=== PATIENT | female | born 1945 | race Caucasian/White ===

== ENCOUNTER 2017-08-08 06:28 | Inpatient (IN) | payer MEDICARE, BC ==
[~2017-08-08] VITALS: Ht 162.6 cm; Wt 53.8 kg
[~2017-08-08 06:28] MED LIST: ACET-1600 PO; CHOL20002 PO; FEXO1TAB25 PO; LEVO88TA4 PO; MULT-516 PO
[2017-08-08] MEDS ORDERED: MIDAZOLAM 1 MG/ML, 2ML ONE (06:53)
[2017-08-08] MEDS ORDERED: FENTANYL PF 100 MCG/2ML ONE ×2 (06:53→10:05)
[2017-08-08] MEDS ORDERED: LACTATED RINGERS 1,000 ML IV SCH (07:09)
[2017-08-08 07:17] VITALS: BP 139/76
[2017-08-08] MEDS ORDERED: EPINEPHRINE 1 MG/ML, 1ML ONE (07:29)
[2017-08-08] MEDS ORDERED: TRANEXAMIC ACID 100 MG/ML, 10ML ONE (07:29)
[2017-08-08] MEDS ORDERED: ROPIvacaine/PF 0.2%, 20 ML ONE (07:29)
[2017-08-08] MEDS ORDERED: SODIUM CHLORIDE 0.9% 100 ML ONE (07:29)
[2017-08-08] MEDS ORDERED: KETOROLAC 60 MG/2 ML ONE (07:29)
[2017-08-08] MEDS ORDERED: ONDANSETRON ODT 8 MG PO ONE (07:30)
[2017-08-08] MEDS ORDERED: ACETAMINOPHEN 500 MG TABLET PO ONE (07:30)
[2017-08-08] MEDS ORDERED: OxyconTIN ER 10 MG TAB.ER PO ONE (07:30)
[2017-08-08] MEDS ORDERED: GABAPENTIN 300 MG CAPSULE PO ONE (07:30)
[2017-08-08] MEDS ORDERED: ROCURONIUM 10 MG/ML,10ML ONE (07:46)
[2017-08-08] MEDS ORDERED: SUCCINYLCHOLINE 20 MG/ML, 10ML ONE (07:46)
[2017-08-08] MEDS ORDERED: PROPOFOL 10 MG/ML, 20ML ONE (08:48)
[2017-08-08] MEDS ORDERED: LIDOCAINE 2%, 10ML ONE (08:48)
[2017-08-08] MEDS ORDERED: DEXAMETHASONE 4 MG/ML, 1ML ONE (08:48)
[2017-08-08] MEDS ORDERED: CEFAZOLIN 1,000 MG ONE (08:48)
[2017-08-08] MEDS ORDERED: MORPHINE SULFATE 4 MG/ML, 1ML ONE ×2 (08:56→10:14)
[2017-08-08] MEDS ORDERED: EPHEDRINE 50 MG/ML, 1ML IM PRN (09:00)
[2017-08-08] MEDS ORDERED: MIDAZOLAM 1 MG/ML, 2ML IV PRN (09:00)
[2017-08-08] MEDS ORDERED: PROMETHAZINE 25 MG/ML, 1ML IV PRN (09:00)
[2017-08-08] MEDS ORDERED: ONDANSETRON 0.8 MG/ML ORAL SOL PO PRN (09:00)
[2017-08-08] MEDS ORDERED: SCOPOLAMINE PATCH, 1.5MG PATCH.TD72 TD PRN (09:00)
[2017-08-08] MEDS ORDERED: ALBUTEROL/IPRATROPIUM 2.5MG/0.5MG, 3 ML NPPB PRN (09:00)
[2017-08-08] MEDS ORDERED: OXYcodone 5 MG/5 ML ORAL.SOL UDC PO PRN (09:00)
[2017-08-08] MEDS ORDERED: PROMETHAZINE 25 MG/ML, 1ML IM PRN ×2 (09:00→10:00)
[2017-08-08] MEDS ORDERED: MORPHINE SULFATE 4 MG/ML, 1ML IVPush PRN (09:00)
[2017-08-08] MEDS ORDERED: PROCHLORPERAZINE 5 MG/ML, 2ML IV PRN (09:00)
[2017-08-08] MEDS ORDERED: hydrALAzine 20 MG/ML, 1ML IV PRN (09:00)
[2017-08-08] MEDS ORDERED: LORazepam 2 MG/ML, 1ML IVPush PRN (09:00)
[2017-08-08] MEDS ORDERED: LABETALOL 5MG/ML, 20ML IV PRN (09:00)
[2017-08-08] MEDS ORDERED: DIPHENHYDRAMINE 50 MG/ML, 1ML IVPush PRN (09:00)
[2017-08-08] MEDS ORDERED: DIAZEPAM 5 MG/ML, 2ML IVPush PRN (09:00)
[2017-08-08] MEDS ORDERED: HYDROcodone/APAP 5/325 TABLET PO PRN (10:00)
[2017-08-08] MEDS ORDERED: ZOLPIDEM 5MG TABLET PO PRN (10:00)
[2017-08-08] MEDS ORDERED: ONDANSETRON 2MG/ML, 2ML IV PRN (10:00)
[2017-08-08] MEDS ORDERED: PROMETHAZINE 12.5 MG SUPP PR PRN (10:00)
[2017-08-08] MEDS ORDERED: DIAZEPAM 5 MG TABLET PO PRN (10:00)
[2017-08-08] MEDS ORDERED: SENNA/DOCUSATE TABLET PO PRN (10:00)
[2017-08-08] MEDS ORDERED: ACETAMINOPHEN 650 MG/20.3 ML UDC PO PRN (10:00)
[2017-08-08] MEDS ORDERED: ALUMINUM/MAG/SIMETHICONE 30 ML UDC PO PRN (10:00)
[2017-08-08] MEDS ORDERED: BISACODYL 10 MG SUPP PR PRN (10:00)
[2017-08-08] MEDS ORDERED: ONDANSETRON 4 MG TABLET PO PRN (10:00)
[2017-08-08] MEDS ORDERED: HYDROmorphone 1 MG/ML, 1ML IV PRN (10:00)
[2017-08-08] MEDS ORDERED: MAGNESIUM HYDROXIDE 8%, 30ML UDC PO PRN (10:00)
[2017-08-08] MEDS ORDERED: DIPHENHYDRAMINE 50 MG CAPSULE PO PRN (10:00)
[2017-08-08] MEDS: FENTANYL PF 100 MCG/2ML IV PRN ×2 (10:07→10:13)
[2017-08-08] MEDS ORDERED: TRANEXAMIC ACID 1,000 MG in SODIUM CHLORIDE 0.9% 100 ML IVPB ONE (10:15)
[2017-08-08 11:10] VITALS: BP 120/56
[2017-08-08] MEDS: HYDROcodone/APAP 5/325 TABLET PO SCH ×3 (11:56→20:00)
[2017-08-08] MEDS: TAMSULOSIN 0.4 MG CAP.ER.24H PO SCH (11:56)
[2017-08-08] MEDS: D5%-0.45% NACL 1,000 ML IV SCH ×2 (11:57→19:33)
[2017-08-08 13:30] VITALS: BP 100/58
[2017-08-08] MEDS ORDERED: ONDANSETRON ODT 4 MG ONE (15:59)
[2017-08-08] MEDS: CEFAZOLIN PMX 2GM/50ML 50 ML IVPB SCH (16:00)
[2017-08-08] MEDS: ASPIRIN 81 MG TABLET EC PO SCH (18:28)
[2017-08-08 19:01] VITALS: BP 105/56
[2017-08-08] MEDS: DOCUSATE 100 MG CAPSULE PO SCH (19:33)
[2017-08-09] MEDS: CEFAZOLIN PMX 2GM/50ML 50 ML IVPB SCH (00:08)
[2017-08-09 00:10] VITALS: BP 104/53
[2017-08-09] MEDS: D5%-0.45% NACL 1,000 ML IV SCH ×2 (00:29→09:45)
[2017-08-09] MEDS: HYDROcodone/APAP 5/325 TABLET PO SCH ×3 (04:00→08:00)
[2017-08-09 04:10] VITALS: BP 105/56
[2017-08-09] MEDS: ASPIRIN 81 MG TABLET EC PO SCH (05:12)
[2017-08-09] MEDS ORDERED: DEXAMETHASONE 4 MG/ML, 1ML IVPush SCH (06:00)
[2017-08-09 07:57] VITALS: BP 103/64
[2017-08-09] MEDS: DOCUSATE 100 MG CAPSULE PO SCH (08:12)
[2017-08-09] MEDS: TAMSULOSIN 0.4 MG CAP.ER.24H PO SCH (08:13)
[2017-08-09] MEDS ORDERED: LEVOTHYROXINE 88 MCG TABLET PO SCH (09:00)
[2017-08-09] MEDS ORDERED: MULTIVITAMINS/MINERALS TABLET PO SCH (09:00)
[2017-08-09] MEDS ORDERED: KETOROLAC 30 MG/1 ML IV SCH (10:00)
[2017-08-09] MEDS ORDERED: HYDR-3240 PO (11:31)
== END 2017-08-09 12:34 | disposition home or self-care (01) | DRG 470 ==
LOC: ORIP 06:28 → 4NOR 10:50 → DCLOUNGE 08-09 12:10
PROVIDERS: ADMIT Orthopaedic Surgery; ATTEND Orthopaedic Surgery
PROC: 0SR902Z Replacement of Right Hip Joint with Metal on Polyethylene Synthetic Substitute, Open Approach (ICD-10-PCS; principal; 2017-08-08 08:30)
DX: M16.11 Unilateral primary osteoarthritis, right hip (principal); E03.9 Hypothyroidism, unspecified; G47.9 Sleep disorder, unspecified; Z88.0 Allergy status to penicillin; Z88.1 Allergy status to other antibiotic agents; Z88.8 Allergy status to other drugs, medicaments and biological substances; Z79.899 Other long term (current) drug therapy
CPT/HCPCS: 36415; 72170; 85014; 85018; 86850; 86900; C1713; J0171; J0690; J1100; J1885; J2250; J2405; J2704; J2795; J3010; J3490; Q0162; C1776; J0330; J7120

== ENCOUNTER 2019-10-16 11:26 | Observation (INO) | payer MEDICARE, BC ==
[~2019-10-16] VITALS: Ht 162.6 cm; Wt 48.4 kg
[~2019-10-16 11:26] MED LIST changes: -CHOL20002 PO; +CHOL200052 PO; +HYDR-3240 PO
[2019-10-16] MEDS ORDERED: KETOROLAC 60 MG/2 ML ONE ×2 (11:53→14:13)
[2019-10-16] MEDS ORDERED: VANCOMYCIN 1,000 MG ONE ×2 (11:53→14:14)
[2019-10-16] MEDS ORDERED: EPINEPHRINE 1 MG/ML, 1ML ONE ×2 (11:53→14:14)
[2019-10-16] MEDS ORDERED: ROPIvacaine/PF 0.2%, 20 ML ONE ×2 (11:53→14:14)
[2019-10-16] MEDS ORDERED: TRANEXAMIC ACID 100 MG/ML, 10ML ONE ×4 (11:53→14:14)
[2019-10-16] MEDS ORDERED: CHLORHEXIDINE 15 ML UDC MM ONE (12:30)
[2019-10-16] MEDS ORDERED: VANCOMYCIN PER PHARMACY MC PRN (12:30)
[2019-10-16] MEDS: LACTATED RINGERS 1,000 ML IV SCH ×3 (12:53→20:08)
[2019-10-16] MEDS ORDERED: VANCOMYCIN PMX 1GM/200ML 200 ML IV ONE (13:00)
[2019-10-16] MEDS ORDERED: FENTANYL PF 250 MCG/5ML ONE (13:06)
[2019-10-16] MEDS ORDERED: PROPOFOL 10 MG/ML, 20ML ONE (14:14)
[2019-10-16] MEDS ORDERED: NEOSTIGMINE 1 MG/ML, 10ML ONE (14:14)
[2019-10-16] MEDS ORDERED: SUCCINYLCHOLINE 20 MG/ML, 10ML ONE (14:14)
[2019-10-16] MEDS ORDERED: DEXAMETHASONE 4 MG/ML, 1ML ONE (14:14)
[2019-10-16] MEDS ORDERED: CEFAZOLIN 1,000 MG ONE (14:14)
[2019-10-16] MEDS ORDERED: ONDANSETRON 2MG/ML, 2ML ONE (14:14)
[2019-10-16] MEDS ORDERED: GLYCOPYRROLATE 0.2MG/1ML, 5ML ONE (14:14)
[2019-10-16] MEDS ORDERED: ROCURONIUM 10MG/ML,5ML ONE (14:14)
[2019-10-16] MEDS ORDERED: PROMETHAZINE 25 MG/ML, 1ML IVPush PRN (15:00)
[2019-10-16] MEDS ORDERED: PROMETHAZINE 25 MG SUPP PR PRN (15:00)
[2019-10-16] MEDS ORDERED: ONDANSETRON 2MG/ML, 2ML IVPush PRN (15:00)
[2019-10-16] MEDS ORDERED: ACETAMINOPHEN 325 MG TABLET PO PRN (15:00)
[2019-10-16] MEDS ORDERED: SUGAMMADEX 200 MG/2 ML IVPush ONE (15:32)
[2019-10-16] MEDS ORDERED: TRANEXAMIC ACID 1,000 MG in SODIUM CHLORIDE 0.9% 100 ML IVPB ONE (16:00)
[2019-10-16] MEDS ORDERED: TEMPLATE NON-FORMULARY MED. (Fexofenadine/Pseudoephedrine (Allegra-D 12 Hour Tablet**) 1 T HOMEMEDPO PRN (16:00)
[2019-10-16] MEDS ORDERED: DIPHENHYDRAMINE 50 MG/ML, 1ML IVPush PRN (16:00)
[2019-10-16] MEDS ORDERED: HYDROcodone/APAP 5/325 TABLET PO PRN ×2 (16:00)
[2019-10-16] MEDS: ACETAMINOPHEN 325 MG TABLET PO SCH ×2 (16:00→20:07)
[2019-10-16] MEDS ORDERED: HYDROcodone/APAP 10/325 MG TABLET PO PRN (16:00)
[2019-10-16] MEDS ORDERED: HYDROmorphone 1 MG/ML, 1ML INJ IVPush PRN (16:00)
[2019-10-16] MEDS ORDERED: SENNA/DOCUSATE TABLET PO PRN (16:00)
[2019-10-16] MEDS ORDERED: OXYcodone 5 MG/5 ML ORAL.SOL UDC ONE (16:04)
[2019-10-16] MEDS ORDERED: FENTANYL PF 100 MCG/2ML ONE ×2 (16:04→16:20)
[2019-10-16] MEDS: FENTANYL PF 100 MCG/2ML IV PRN ×4 (16:07→16:48)
[2019-10-16] MEDS: OXYcodone 5 MG/5 ML ORAL.SOL UDC PO PRN ×2 (16:34→16:49)
[2019-10-16] MEDS ORDERED: ACETAMINOPHEN 650 MG/20.3 ML UDC ONE (16:37)
[2019-10-16] MEDS ORDERED: HYDROmorphone 1 MG/ML, 1ML INJ ONE (16:56)
[2019-10-16] MEDS: HYDROmorphone 1 MG/ML, 1ML INJ IVPush PRN ×2 (16:58→17:10)
[2019-10-16] MEDS: CLINDAMYCIN PMX 900MG/50ML 50 ML IVPB SCH (20:07)
[2019-10-16] MEDS: PREGABALIN 75 MG CAPSULE PO SCH (20:07)
[2019-10-16 20:22] VITALS: BP 134/70
[2019-10-16] MEDS: ONDANSETRON 2MG/ML, 2ML IVPush PRN (22:49)
[2019-10-17 00:01] VITALS: BP 106/55
[2019-10-17] MEDS: ACETAMINOPHEN 325 MG TABLET PO SCH ×3 (03:02→08:05)
[2019-10-17 03:06] VITALS: BP 131/63
[2019-10-17] MEDS: ONDANSETRON 2MG/ML, 2ML IVPush PRN ×2 (03:14→08:05)
[2019-10-17] MEDS: CLINDAMYCIN PMX 900MG/50ML 50 ML IVPB SCH (03:31)
[2019-10-17] MEDS: LACTATED RINGERS 1,000 ML IV SCH (05:35)
[2019-10-17] MEDS ORDERED: LEVOTHYROXINE 88 MCG TABLET PO SCH (06:00)
[2019-10-17] MEDS ORDERED: DEXAMETHASONE 4 MG/ML, 1ML IVPush SCH (06:00)
[2019-10-17] MEDS ORDERED: VANCOMYCIN PMX 1GM/200ML 200 ML IVPB SCH (07:00)
[2019-10-17 07:43] VITALS: BP 117/61
[2019-10-17] MEDS: PREGABALIN 75 MG CAPSULE PO SCH (08:06)
[2019-10-17] MEDS ORDERED: CHOLECALCIFEROL 1,000 UNIT TABLET PO SCH (09:00)
[2019-10-17] MEDS ORDERED: MULTIVITAMIN 1 TABLET PO SCH (09:00)
[2019-10-17] MEDS ORDERED: ASPIRIN 81 MG TABLET EC PO SCH (18:00)
== END 2019-10-17 11:10 | disposition home or self-care (01) ==
LOC: OUT 11:26 → ORIP 15:52 → 4NE 17:42 → DCLOUNGE 10-17 11:03
PROVIDERS: ADMIT Orthopaedic Surgery; ATTEND Orthopaedic Surgery
DX: Z03.818 Encounter for observation for suspected exposure to other biological agents ruled out (principal); M16.12 Unilateral primary osteoarthritis, left hip; M81.0 Age-related osteoporosis without current pathological fracture; E07.9 Disorder of thyroid, unspecified; Z79.899 Other long term (current) drug therapy
CPT/HCPCS: 27130; 36415; 73502; 85018; 86850; 86900; 87081; 87635; 96365; 96366; 96375; 96376; 97162; C1713; C1776; G0378; J0171; J0330; J0690; J1100; J1170; J1885; J2405; J2704; J2710; J2795; J3010; J3370; J7120